=== PATIENT | female | born 2000 | race Caucasian/White ===

== ENCOUNTER 2018-08-23 09:12 | Emergency (ER) | payer OTHER ==
[2018-08-23 09:27] VITALS: BP 128/81
[2018-08-23] MEDS ORDERED: NORMAL SALINE 1000 ML 1,000 ML IV ONE (09:41)
[2018-08-23] MEDS ORDERED: KETOROLAC TROMETHAMINE INJ/PF 30 MG/1 ML SDV IV ONE (09:42)
[2018-08-23] MEDS ORDERED: LIDOCAINE 2% VISCOUS SOLN 20 ML UDCUP PO ONE (09:42)
[2018-08-23] MEDS ORDERED: DEXAMETHASONE SOD PHOS INJ 10 MG/1 ML VIAL IV ONE (09:42)
[2018-08-23] MEDS ORDERED: CLINDAMYCIN 600 MG/D5W RTU 600 MG/50 ML RTUPB IV ONE (09:43)
[2018-08-23 10:36] LABS: ABSOLUTE BASOPHILS # (AUTO) 0.1 10^3/uL (0.0-0.2); ABSOLUTE LYMPHOCYTES (AUTO) 1.3 10^3/uL (0.5-4.7); ABSOLUTE MONOCYTES (AUTO) 0.7 10^3/uL (0.1-1.4); ABSOLUTE NEUT (AUTO) 7.9 10^3/uL (1.7-8.2); BASOPHILS % (AUTO) 0.5 % (0-2); EOSINOPHILS % (AUTO) 0.3 % (0-6); HEMATOCRIT 40.8 % (36.0-47.0); HEMOGLOBIN 13.9 g/dL (12.0-15.5); LYMPHOCYTES % (AUTO) 13.5 % (13-45); MEAN CORPUSCULAR HEMOGLOBIN 27.8 pg (27.0-33.4); MEAN CORPUSCULAR HGB CONC 34.1 g/dL (32.0-36.0); MEAN CORPUSCULAR VOLUME 82 fl (80-97); MONOCYTES % (AUTO) 7.1 % (3-13); PLATELET COUNT 283 10^3/uL (150-450); RED CELL DISTRIBUTION WIDTH 13.1 % (11.5-14.0); SEGMENTED NEUTROPHILS % (AUTO) 78.6 % (42-78); TOTAL CELLS COUNTED % (AUTO) 100 %
--- NOTE | 2018-08-23 10:56 | RADIOLOGY REPORT (SQ) ---
EXAM DESCRIPTION: CT SOFT TISSUE NECK WITH COMPLETED DATE/TIME: 08/23/2018 10:44 am REASON FOR STUDY: throat pain, diff swallowing COMPARISON: None. TECHNIQUE: Post IV contrasted scanning from skull base through lung apices with review of bone, soft tissue and lung windows. Reconstructed coronal and sagittal MPR images reviewed. All images stored on PACS. All CT scanners at this facility use dose modulation, iterative reconstruction, and/or weight based d osing when appropriate to reduce radiation dose to as low as reasonably achievable (ALARA). [facility]: Dose Right [facility]: CareDose [facility]: Dose Right [facility]: Teradose 4D [facility]: [employer] CONTRAST TYPE AND DOSE: contrast/concentration: Isovue 350.00 mg/ml; Total Contrast Delivered: 75.0 ml; Total Saline Delivered: 36.8 ml RENAL FUNCTION: None required. The patient is less than 50 years old. RADIATION DOSE: . LIMITATIONS: None. FINDINGS: SKULL BASE: Intact. MAJOR SALIVARY GLANDS: No solid or cystic masses. No inflammatory changes. LYMPHADENOPATHY: Mild cervical adenopathy is present, left side more than right. MUCOSAL MASSES OR ASYMMETRY: The tonsils are prominent. There is no evidence of peritonsillar absces s. LARYNX/CORDS: No abnormal findings. VASCULAR STRUCTURES: The major vessels are patent. LUNG APICES: Clear. BONES: Intact. THYROID: Normal size. No masses. PARANASAL SINUSES: Clear. OTHER: No other significant finding. IMPRESSION: Prominent tonsils. No peritonsillar abscess is present. TECHNICAL DOCUMENTATION: JOB ID: [id number] Quality ID # [id number]: Final reports with documentation of one or more dose reduction techniques (e.g., Au tomated exposure control, adjustment of the mA and/or kV according to patient size, use of iterative reconstruction technique) 2010 [employer]- All Rights Reserved Reading location - IP/workstation name: [email or web address]
--- NOTE | 2018-08-23 12:08 | ER Document Report ---
HPI - HPI Patient complains to provider of: Sore throat Time Seen by Provider: 08/23/18 09:32 Onset: Other - 3 days Onset/Duration: Persistent Quality of pain: Achy Pain Level: 4 Context: Patient presents complaining of sore throat with swollen tonsils for the past 3 days. Patient states she did see the urgent care twice and has had a negative flu test, negative strep test x2 and negative mono test x2. Patient was started on Augmentin and has had 3 doses of the medication. Patient states that she was advised to come here for worsening of symptoms. Patient complains of difficulty with swallowing. Associated Symptoms: Sore throat. denies: Nonproductive cough, Productive cough , Earache, Fever, Vomiting, Shortness of breath Exacerbated by: Denies Relieved by: Denies Recently seen / treated by doctor: Yes - ROS ROS below otherwise negative: Yes Systems Reviewed and Negative: Yes All other systems reviewed and negative - CONSTITUTIONAL Constitutional: DENIES: Fever - EENT EENT: REPORTS: Sore Throat - NEURO Neurology: DENIES: Headache - RESPIRATORY Respiratory: DENIES: Coughing - GASTROINTESTINAL Gastrointestinal: DENIES: Nausea, Patient vomiting - MUSCULOSKELETAL Musculoskeletal: DENIES: Neck Pain - DERM Skin Color: Normal Skin Problems: None Past Medical History - General Information source: Patient - Social History Smoking Status: Former Smoker Frequency of alcohol use: None Drug Abuse: None Occupation: Retail Lives with: Family Family History: Reviewed & Not Pertinent Patient has suicidal ideation: No Patient has homicidal ideation: No Renal/ Medical History: Reports: Hx Ovarian Cysts. Denies: Hx Peritoneal Dialysis Past Surgical History: Reports: Hx Adenoidectomy, Hx Myringotomy Vertical Provider Document - CONSTITUTIONAL Agree With Documented VS: Yes Exam Limitations: No Limitations General Appearance: WD/WN, No Apparent Distress - INFECTION CONTROL TRAVEL OUTSIDE OF THE [place] IN LAST 30 DAYS: No - HEENT HEENT: Atraumatic, Normocephalic, Pharyngeal Exudate, Pharyngeal Tenderness, Pharyngeal Erythema Notes: Patient able to speak with clear voice, no trismus, no obvious potential airway compromise. - NECK Neck: Lymphadenopathy-Left, Lymphadenopathy-Right - RESPIRATORY Respiratory: Breath Sounds Normal, No Respiratory Distress - CARDIOVASCULAR Cardiovascular: Regular Rate, Regular Rhythm, No Murmur - BACK Back: Normal Inspection - MUSCULOSKELETAL/EXTREMETIES Musculoskeletal/Extremeties: LORRAINE TAYLOR - NEURO Level of Consciousness: Awake, Alert, Appropriate Motor/Sensory: No Motor Deficit - DERM Integumentary: Warm, Dry, No Rash Course - Re-evaluation Re-evalutation: 08/23/18 12:05 Patient had previously had 2- strep tests and 2- mono test performed at the urgent care today and yesterday. Patient was sent here from the urgent care for concerns about possible peritonsillar abscess. Patient without any evidence for Sergio's angina or peritonsillar abscess on CT scan. Patient able to manage her oral secretions. Throat culture is pending at this time. Will change antibiotics as she has not had any improvement with the Augmentin. Patient is requesting a prescription for viscous lidocaine to help manage her symptoms. - Vital Signs Vital signs: Temp Pulse Resp BP Pulse Ox 99.0 F 102 H 18 128/81 H 98 08/23/18 09:21 08/23/18 09:21 08/23/18 09:21 08/23/18 09:21 08/23/18 09:21 - Laboratory Result Diagrams: 08/23/18 10:13 Laboratory results interpreted by me: 08/23/18 10:13 Seg Neutrophils % 78.6 H 08/23/18 16:51 Labs- Entire Visit 08/23/18 10:13 WBC 10.0 RBC 5.00 Hgb 13.9 Hct 40.8 MCV 82 MCH 27.8 MCHC 34.1 RDW 13.1 Plt Count 283 Seg Neutrophils % 78.6 H Lymphocytes % 13.5 Monocytes % 7.1 Eosinophils % 0.3 Basophils % 0.5 Absolute Neutrophils 7.9 Absolute Lymphocytes 1.3 Absolute Monocytes 0.7 Absolute Eosinophils 0.0 Absolute Basophils 0.1 - Diagnostic Test Radiology reviewed: Reports reviewed Discharge - Discharge Clinical Impression: Tonsillitis Condition: Stable Disposition: HOME, SELF-CARE Instructions: Corticosteroid Medication ([facility]), Sore Throat ([facility]), Tonsillitis ( [facility]) Additional Instructions: Return immediately for any new or worsening symptoms Followup with your primary care provider, call tomorrow to make a followup appointment Throat culture is pending, we will call if you need any different treatment Prescriptions: Clindamycin HCl [Cleocin Hcl] 300 mg PO QID #28 capsule Lidocaine HCl [Xylocaine Viscous] 5 ml PO Q6H PRN #100 ml PRN Reason: Naproxen [Naprosyn 250 Nmg Tablet] 1 tab PO BID #14 tablet Forms: Return to Work Referrals: PAIGE SOLORIO MD [Primary Care Provider] - Follow up as needed
== END 2018-08-23 12:36 | disposition home or self-care (01) ==
LOC: ER 09:12
DX: J03.90 Acute tonsillitis, unspecified (principal); R59.9 Enlarged lymph nodes, unspecified; R13.10 Dysphagia, unspecified; Z87.891 Personal history of nicotine dependence
CPT/HCPCS: 99284; 96361; 96375; 96365; 96366; 36415; 87040; 87070; 85025; 70491; J3490; J1885; J7030; J1100